=== PATIENT | female | born 1980 | race Caucasian/White ===

== ENCOUNTER 2022-03-21 20:57 | Emergency (ER) | payer MEDICARE, MEDICAID ==
[2022-03-21 21:41] LABS: Bilirubin Neg (Negative); Blood, Urine Negative (Negative); Clarity Clear (Clear); Glucose, Urine (Dipstick) Normal (Negative); Ketone, Urine Negative (Negative); Leukocyte 500 (Negative); Nitrite Negative (Negative); Protein, Urine (Dipstick) Negative (Neg-Trace); Urobilinogen Normal mg/dL (Less than 2)
[2022-03-21 21:42] LABS: Pregnancy Test - Urine (BHCG) Negative (Negative); Pregu Control Background? CLEAR/WHITE (CLR/WHITE); Pregu Control Bar Appear? YES (CONTROL BAR)
[2022-03-21 21:48] LABS: #Basophils 0.1 10x3/uL (0.0-0.2); #Eosinphils 0.2 10x3/uL (0.0-0.5); #Monocytes 0.9 10x3/uL (0.0-1.1); #Neutrophils 6.9 10x3/uL (1.5-8.4); %Basophils 0.5 % (0.0-2.0); %Eosinophils 1.7 % (0.0-6.0); %Lymphocytes 15.3 % (18.0-47.0); %Monocytes 9.3 % (0.0-10.0); Hemoglobin 13.1 g/dL (12.0-15.5); Mean Corpuscular HGB CONC 32.6 g/dL (32.0-36.0); Mean Corpuscular Hemoglobin 30.3 pg (27.0-33.0); Mean Corpuscular Volume 93.1 fl (81.6-98.3); Platelet Count 246 10x3/uL (150-450); RBC Distribution Width 12.8 % (11.5-14.5); Red Blood Cell (RBC) Count 4.32 10x6/uL (3.90-5.03); White Blood Cell (WBC) Count 9.5 10x3/uL (3.5-10.5)
[2022-03-21] MEDS ORDERED: Ketorolac Tromethamine 30 MG/ML VIAL ONE (21:50)
[2022-03-21 21:53] LABS: RBC/HPF None Seen HPF (0-3); Squamous Epithelial 0-3 HPF (0-3)
[2022-03-21 21:54] LABS: Bacteria/HPF 1+ HPF (None Seen); Mucous/LPF 1+ LPF (<2+); White Blood Cell Cast 0-3 LPF (None Seen)
[2022-03-21] MEDS ORDERED: Orphenadrine Citrate 60 MG/2 ML VIAL IM SCH (22:00)
[2022-03-21 22:03] LABS: ALT (SGPT) 11 U/L (8-55); AST (SGOT) 11 U/L (5-34); Albumin 3.9 g/dL (3.5-5.0); Alkaline Phosphatase 66 U/L (40-110); Anion Gap 12 mmol/L (10-20); BUN (Urea Nitrogen) 7 mg/dL (7.0-18.7); Bilirubin, Total 0.3 mg/dL (0.2-1.2); Calc. Creatinine Clearance 0 mL/min (70-130); Calcium 9.1 mg/dL (7.8-10.44); Carbon Dioxide 26 mmol/L (22-29); Chloride 105 mmol/L (98-107); Globulin 2.4 g/dL (2.4-3.5); Glucose 82 mg/dL (70-105); Potassium 3.9 mmol/L (3.5-5.1); Protein, Total 6.3 g/dL (6.0-8.3); Sodium 139 mmol/L (136-145)
[2022-03-22] MEDS ORDERED: Ketorolac Tromethamine 30 MG/ML VIAL ONE (01:05)
== END 2022-03-22 00:57 | disposition home or self-care (01) ==
LOC: CSHERS 20:57
DX: N10 Acute pyelonephritis (principal); F17.220 Nicotine dependence, chewing tobacco, uncomplicated
CPT/HCPCS: 36415; 74176; 80053; 81003; 81015; 81025; 85025; 87086; 96372; J1885; J2360

== ENCOUNTER 2023-02-08 03:16 | Emergency (ER) | payer OTHER, MEDICAID ==
[2023-02-08] MEDS ORDERED: Ketorolac Tromethamine 30 MG/ML VIAL ONE (04:11)
[2023-02-08] MEDS ORDERED: HYDROmorphone 0.5 MG/0.5 ML SYRINGE ONE (05:24)
[2023-02-08] MEDS ORDERED: Cyclobenzaprine 10 MG TAB ONE (05:59)
== END 2023-02-08 06:03 | disposition home or self-care (01) ==
LOC: CSHERS 03:16
DX: M54.12 Radiculopathy, cervical region (principal); F17.290 Nicotine dependence, other tobacco product, uncomplicated
CPT/HCPCS: 96372; 99283; J1170; J1885

== ENCOUNTER 2023-02-09 23:43 | Emergency (ER) | payer OTHER, MEDICAID ==
[2023-02-10] MEDS ORDERED: HYDROmorphone 0.5 MG/0.5 ML SYRINGE ONE (02:27)
== END 2023-02-10 02:43 | disposition home or self-care (01) ==
LOC: CSHERS 23:43
DX: M54.12 Radiculopathy, cervical region (principal); F17.200 Nicotine dependence, unspecified, uncomplicated
CPT/HCPCS: 96372; 99283; J1170

== ENCOUNTER 2023-02-11 05:02 | Emergency (ER) | payer OTHER, MEDICAID ==
[2023-02-11] MEDS ORDERED: Dexamethasone 10 MG/ML VIAL ONE (05:38)
[2023-02-11] MEDS ORDERED: Ketorolac Tromethamine 30 MG/ML VIAL ONE ×2 (05:39→06:35)
[2023-02-11] MEDS ORDERED: Cyclobenzaprine 10 MG TAB ONE (05:39)
== END 2023-02-11 06:50 | disposition home or self-care (01) ==
LOC: CSHERS 05:02
DX: M54.6 Pain in thoracic spine (principal); G89.29 Other chronic pain; F17.290 Nicotine dependence, other tobacco product, uncomplicated
CPT/HCPCS: 96372; 99283; J1100; J1885